=== PATIENT | female | born 1950 | race Caucasian/White ===

== ENCOUNTER → 2017-08-23 | Outpatient (CLI) | payer OTHER | END | disposition home or self-care (01) | LOC: TOM 07:09 | DX: K66.0 Peritoneal adhesions (postprocedural) (postinfection) (principal); K56.50 Intestinal adhesions [bands], unspecified as to partial versus complete obstruction ==

== ENCOUNTER 2018-01-21 11:35 | Emergency (ER) | payer OTHER ==
[~2018-01-21] VITALS: Ht 152.4 cm; Wt 61.2 kg
[2018-01-21] MEDS ORDERED: METFORMIN HCL850 MG (12:16)
[2018-01-21] MEDS ORDERED: DIOVAN160 M1 ×2 (12:17→12:18)
[2018-01-21] MEDS ORDERED: AMLODIPINE BES2.5 MG (12:17)
[2018-01-21] MEDS ORDERED: HYDROCHLOROTH12.5 M1 (12:18)
[2018-01-21] MEDS ORDERED: ZOCOR40 MG (12:18)
[2018-01-21] MEDS ORDERED: GLIMEPIRIDE2 MG (12:18)
[2018-01-21] MEDS ORDERED: VENLAFAXINE HCL75 MG (12:19)
[2018-01-21] MEDS ORDERED: MIRTAZAPINE15 MG (12:19)
== END 2018-01-21 16:37 | disposition home or self-care (01) ==
LOC: ER 11:35
DX: R19.7 Diarrhea, unspecified (principal)

== ENCOUNTER 2025-03-07 21:42 | Emergency (ER) | payer OTHER ==
[~2025-03-07] VITALS: Ht 152.4 cm; Wt 63.5 kg
[~2025-03-07 21:42] MED LIST: AMLODIPINE BES2.5 MG; DIOVAN160 M1; GLIMEPIRIDE2 MG; HYDROCHLOROTH12.5 M1; METFORMIN HCL850 MG; MIRTAZAPINE15 MG; VENLAFAXINE HCL75 MG; ZOCOR40 MG
[2025-03-07 23:18] LABS: BASO % 0.5 % (0.1-1.2); EOS # 0.14 (0.04-0.54); EOS % 1.2 % (0.7-7.0); LYMPH # 2.09 (1.18-3.74); LYMPH % 17.6 % (19.3-53.1); MEAN PLATELET VOLUME 11.70 fl (9.4-12.4); MONO # 0.82 (0.24-0.82); MONO % 6.9 % (4.7-12.5); NEUT # 8.75 (1.56-6.13); NEUT % 73.5 % (34.0-71.1); RED CELL DISTRIBUTION WIDTH 12.4 % (11.6-14.4)
[2025-03-07] MEDS ORDERED: AZITHROMYCIN 500 MG TABLET PO ONE ×2 (23:30→23:48)
[2025-03-07 23:38] LABS: INR 0.96
[2025-03-07 23:42] LABS: ALT/SGPT 21.0 U/L (12-78); AST/SGOT 13.0 U/L (15-37); BILIRUBIN TOTAL 0.2 mg/dL (0.3-1.2); BUN CREA RATIO 23.0 (7.0-25.0); CREATININE SERUM 0.64 mg/dL (0.55-1.02); GFR 90.22; GLOBULINA 3.4 G/DL (2.4-3.5); GLUCOSE FASTING 147.0 mg/dL (65-100); OSMOLALITY SERUM 287.0 MOSM/KG (275-295)
[2025-03-07] MEDS ORDERED: AZITHROMYCIN 500 MG VIAL IV ONE (23:48)
[2025-03-08 01:44] LABS: URINE APPEARANCE Clear; URINE BILIRRUBIN Negative (NEGATIVE); URINE BLOOD Negative; URINE COLOR Yellow; URINE KETONE Negative (NEGATIVE); URINE LEUKOCYTE Negative; URINE NITRATE Negative; URINE PROTEIN Negative (NEGATIVE); URINE UROBILINOGEN 0.2 E.U./dl
[2025-03-08 01:49] LABS: URINE BACTERIA 119.9 uL (0.0-1933); URINE EPITHELIAL CELLS 9.2 uL (0.0-38.8); URINE RBC 2.6 uL (0.0-20.8); URINE WBC 5.2 uL (0.0-23.2)
[2025-03-08 02:11] LABS: URINE CAST 0.00 uL (0.0-1.40); URINE GLUCOSE 250 MG/DL (NEGATIVE)
== END 2025-03-08 02:36 | disposition home or self-care (01) ==
LOC: ER 21:42
PROVIDERS: General Practice
DX: G44.209 Tension-type headache, unspecified, not intractable (principal); H53.8 Other visual disturbances; E11.9 Type 2 diabetes mellitus without complications; Z79.84 Long term (current) use of oral hypoglycemic drugs; Z88.0 Allergy status to penicillin; Z88.6 Allergy status to analgesic agent
CPT/HCPCS: 36415; 70450; 71045; 93005; 96365; 99284; J0456